=== PATIENT | female | born 1980 | race Caucasian/White ===

== ENCOUNTER → 2020-06-14 | Outpatient (CLI) | payer OTHER ==
[~2020-06-14] MED LIST: MOTR200T44 PO
--- NOTE | 2020-06-14 17:44 | REP ---
INDICATION: MISSING STRINGS. COMPARISON: 04/20/2009. TECHNIQUE: Transabdominal and transvaginal scanning performed. FINDINGS: Uterine dimensions are 8.9 x 4.3 x 5.3 cm. Endometrial echo is approximately 7 mm in AP dimension and centrally placed. IUD is seen within the endometrial canal. The bladder measures 9.1 x 9.5 x 8.0 cm. The right ovary has dimensions of 3.6 x 2.3 x 2.0 cm. It's Doppler flow is normal with a resistive index of 0.56. The left ovary dimensions are 2.7 x 1.8 x 2.5 cm. It's Doppler flow was normal with resistive index of 0.54. Dominant follicle in the right ovary measures 1.5 cm. No free fluid is seen in the cul-de-sac. IMPRESSION: IUD seen within the endometrial canal. No adnexal mass or free fluid. <Electronically signed by Jeremy Pritchett > 06/14/20 [id number]
== END ==
LOC: M RAD 15:49
PROVIDERS: ATTEND Advanced Practice Midwife
DX: Z30.431 Encounter for routine checking of intrauterine contraceptive device (principal)

== ENCOUNTER → 2020-10-19 | Outpatient (CLI) | payer OTHER ==
--- NOTE | 2020-10-19 10:49 | REPMRS ---
Patient History The patient states she had a clinical breast exam in . Baseline No known family history of cancer. Taking hormonal contraceptives for 7 years. Patient states no breast complaints today. Patient has signed MRS History Sheet. Digital Woman Screen Mammo: October 19, 2020 - Exam #: [id number] Bilateral CC and MLO view(s) were taken. Technologist: Edita Green, Technologist FINDINGS: The breast tissue is heterogeneously dense. This may lower the sensitivity of mammography. Screening. Digital screening (2D) mammography was performed bilaterally. Additionally, breast tomosynthesis (3D) mammography was perfomed bilaterally in the CC and MLO projections. Today's examination is the initial screening examination. By history, the patient has no complaints of a palpable breast abnormality or other significant breast complaints. The breasts are symmetric in size and shape. Dense heterogenous fibroglandular elements are seen bilaterally to such a degree that the sensitivity of the mammogram in detecting cancer is decreased. There are no masses. There is no internal architectural distortion. There are no suspicious microcalcific clusters. Skin thickening or nipple retraction is not present. IMPRESSION: BI-RADS Category 2- Benign Findings. There is no evidence of malignant alteration of the breasts. Followup examination recommended in one year. The Volpara volumetric breast density category is C, the breasts are heterogenously dense which may obscure small masses. This mammogram was read with the assistance of WebVisible,an FDA approved computer aided detection system for mammography. The lifetime Tyrer-Cuzick score is 13.5 % Due to the density of the breasts or Tyrer Cuzick score of 20% or greater, MRI/whole breast screening ultrasound is warranted. Negative x-ray reports should not delay surgical consultation if a dominant or clinically suspicious mass is present. Not all breast cancers can be identified by mammography. Therefore, we recommend that you continue to perform regular breast self-examination and physical examination and then promptly contact your physician of any concerns or changes. Adenosis and dense breasts may obscure an underlying neoplasm. Assessment: BI-RADS/ACR category 2 mammogram. Benign Findings. Recommendation Routine screening mammogram of both breasts in 1 year. Electronically Signed By: Garett Leos DO 10/19/20 [id number]
== END ==
LOC: M WHC 09:52
PROVIDERS: ATTEND Advanced Practice Midwife
DX: Z12.31 Encounter for screening mammogram for malignant neoplasm of breast (principal)

== ENCOUNTER → 2021-10-20 | Outpatient (CLI) | payer OTHER | LOC: M WHC 15:19 | PROVIDERS: ATTEND Obstetrics & Gynecology | DX: Z12.31 Encounter for screening mammogram for malignant neoplasm of breast (principal) ==

== ENCOUNTER → 2022-10-25 | Outpatient (CLI) | payer OTHER | LOC: M WHC 08:19 | PROVIDERS: ATTEND Obstetrics & Gynecology | DX: Z12.31 Encounter for screening mammogram for malignant neoplasm of breast (principal) ==

== ENCOUNTER → 2023-10-29 | Outpatient (CLI) | payer OTHER | LOC: M WHC 09:32 | PROVIDERS: ATTEND Obstetrics & Gynecology | DX: Z12.31 Encounter for screening mammogram for malignant neoplasm of breast (principal) ==

== ENCOUNTER → 2024-10-29 | Outpatient (CLI) | payer OTHER | LOC: M WHC 10:31 | PROVIDERS: ATTEND Obstetrics & Gynecology | DX: Z12.31 Encounter for screening mammogram for malignant neoplasm of breast (principal) ==